=== PATIENT | male | born 1955 | race Caucasian/White ===

== ENCOUNTER 2023-07-02 07:10 | Outpatient (CLI) | payer MEDICARE, SELFPAY ==
--- NOTE | 2023-07-02 08:51 | W.ANESCHARGE ---
Anesthesia Charges Start Date/Time Anesthesia Start Date: 07/02/23 Anesthesia Start Time: 08:18 Stop Date/Time Anesthesia Stop Date: 07/02/23 Anesthesia Stop Time: 08:47
== END 2023-07-02 07:11 | disposition home or self-care (01) ==
PROVIDERS: PCP Surgery; Visit Provider Internal Medicine Gastroenterology
DX: K92.1 Melena (principal); Z86.010 Personal history of colon polyps
CPT/HCPCS: 00812; 45378; J2704